=== PATIENT | male | born 1965 | race Caucasian/White ===

== ENCOUNTER 2017-11-15 07:03 | Emergency (ER) | payer SELFPAY ==
[2017-11-15 07:26] VITALS: BP 135/84
--- NOTE | 2017-11-16 11:53 | UC ---
Ken Jack Nilda, scribed for Tyler Weems MD on 11/15/17 at 0743 . FLU HPI - HPI Summary HPI Summary: This patient is a 51 year old M presenting to [facility] [place] with a chief complaint of intermittent flu-like symptoms for the past couple of days. Symptoms aggravated and alleviated by nothing. Pain is rated 4/10 in severity. Patient reports fatigue, myalgia, headache, cough, and mild left sided CP when coughing ( recently but none today). Patient denies sore throat and rhinorrhea. - History of Current Complaint Chief Complaint: UCGeneralIllness Stated Complaint: HEADACHE, LOW ENERGY Time Seen by Provider: 11/15/17 07:16 Hx Obtained From: Patient Onset/Duration: Sudden Onset, Lasting Days, Still Present Severity Initially: Moderate Pain Intensity: 4 Pain Scale Used: 0-10 Numeric Associated Signs & Symptoms: Positive: Myalgia, Cough, Headache. Negative: Sore Throat - Allergy/Home Medications Allergies/Adverse Reactions: Allergies Allergy/AdvReac Type Severity Reaction Status Date / Time No Known Allergies Allergy Verified 11/15/17 07:22 PMH/Surg Hx/FS Hx/Imm Hx Neurological History: Other Other Neurological History: cerebral palsy - Surgical History Surgical History: Unable to Obtain/Confirm - Family History Known Family History: Positive: Hypertension Negative: Cardiac Disease - Social History Alcohol Use: Rare Substance Use Type: None Smoking Status (MU): Never Smoked Tobacco Review of Systems Constitutional: Fatigue ENT: Other - negative sore throat, rhinorrhea Respiratory: Cough Cardiovascular: Chest Pain - with cough Musculoskeletal: Myalgia Neurological: Headache All Other Systems Reviewed And Are Negative: Yes Physical Exam Triage Information Reviewed: Yes Vital Signs: Initial Vital Signs Temp 97.9 F 11/15/17 07:23 Pulse 78 11/15/17 07:23 Resp 16 11/15/17 07:23 BP 135/84 11/15/17 07:23 Pulse Ox 98 11/15/17 07:23 Vital Signs Reviewed: Yes - Additional Comments GENERAL: Patient is a well developed and nourished M who is lying comfortable in the stretcher. Patient is not in any acute respiratory distress. HEAD AND FACE: Normocephalic EYES: PERRLA, EOMI x 2. EARS: Hearing grossly intact. MOUTH: Oropharynx within normal limits. NECK: Supple, trachea is midline, no adenopathy, no JVD, no carotid bruit. CHEST: Symmetric, no tenderness at palpation LUNGS: Clear to auscultation bilaterally. No wheezing or crackles. CVS: Regular rate and rhythm, S1 and S2 present, no murmurs or gallops appreciated. ABDOMEN: Soft, non-tender. Bowel sounds are normal. No abdominal abnormal pulsations. EXTREMITIES: Full ROM in all major joints, no edema, no cyanosis or clubbing. NEURO: Alert and oriented x 3. No acute neurological deficits. Speech is normal and follows commands. SKIN: Dry and warm Diagnostics - EKG Cardiac Rate: NL Cardiac Rhythm: Sinus: Normal - 85 bpm, no ST elevation, Qwave in 3. Re-Evaluation - Re-Evaluation First Eval Re-Evaluation Time: 07:52 Comment: Discussed labs and EKG with pt as well as plan to DC. Flu Course/Dx - Course Course Of Treatment: This patient is a 51 year old M presenting to [facility] [place] with a chief complaint of intermittent flu-like symptoms for the past couple of days. Symptoms aggravated and alleviated by nothing. Patient reports fatigue, myalgia , headache, cough, and mild left sided CP when coughing (recently but none today ). Patient denies sore throat and rhinorrhea. Pending UA. UA reveals trace Leukocyte Esterase. Influenza A and B: Negative. An EKG reveals NSR 85 bpm, no ST elevation, Q-wave in 3. Pt will be D/C with a Dx of URI. I discussed all the findings and test results with the patient. Pt was instructed to return to the urgent care or go to ER immediately if any of the symptoms return or worsens. Plan of care was discussed with the patient and pt understands and agrees. All questions were answered to patient satisfaction. There were no further complaints or concerns. - Differential Dx/Diagnosis Differential Diagnosis/HQI/PQRI: Bronchitis, Influenza, Pneumonia Provider Diagnoses: URI Discharge - Discharge Plan Condition: Stable Disposition: HOME Patient Education Materials: Upper Respiratory Infection (ED) Forms: *Work Release Referrals: Claudy Cohen MD [Primary Care Provider] - 3 Days Additional Instructions: Return to the urgent care or go to ER immediately if any of the symptoms return or worsens. The documentation as recorded by the Ken stevenson Nilda accurately reflects the service I personally performed and the decisions made by me, Tyler Weems MD.
== END 2017-11-15 08:02 | disposition home or self-care (01) ==
LOC: UCEAST 07:03
DX: J06.9 Acute upper respiratory infection, unspecified (principal); R07.89 Other chest pain; R53.83 Other fatigue; G80.9 Cerebral palsy, unspecified
CPT/HCPCS: 81003; 87086; 87502; 93005; 99211; G0463